=== PATIENT | female | born 1975 | race Caucasian/White ===

== ENCOUNTER 2022-04-25 17:49 | Emergency (ER) | payer OTHER ==
[~2022-04-25] VITALS: Ht 157.5 cm; Wt 68.7 kg
[~2022-04-25 17:49] MED LIST: FERR-252 PO
[2022-04-25 17:55] VITALS: BP 158/93
[2022-04-25] MEDS ORDERED: KETOROLAC 30 MG/ML VIAL IM ONE (18:25)
[2022-04-25] MEDS ORDERED: CYCLOBENZAPRINE 10 MG TAB PO ONE (18:25)
--- NOTE | 2022-04-25 20:00 | NUR ---
ER physician with patient.
[2022-04-25] MEDS ORDERED: CYCL-711 PO (20:17)
[2022-04-25] MEDS ORDERED: LIDO1ADH38 TP (20:17)
[2022-04-25] MEDS ORDERED: IBUP-2213 PO (20:17)
[2022-04-25] MEDS ORDERED: KETOROLAC 30 MG/ML VIAL ONE (20:30)
[2022-04-25] MEDS ORDERED: CYCLOBENZAPRINE 10 MG TAB ONE (20:30)
[2022-04-25 20:40] VITALS: BP 122/84
== END 2022-04-25 20:40 | disposition home or self-care (01) ==
LOC: MED 17:49
DX: S16.1XXA Strain of muscle, fascia and tendon at neck level, initial encounter (principal); S39.012A Strain of muscle, fascia and tendon of lower back, initial encounter; S60.212A Contusion of left wrist, initial encounter; Z79.899 Other long term (current) drug therapy; V89.2XXA Person injured in unspecified motor-vehicle accident, traffic, initial encounter; Y93.89 Activity, other specified; Y92.89 Other specified places as the place of occurrence of the external cause; Y99.8 Other external cause status
CPT/HCPCS: 72100; 73110; 96372; 99284; J1885

== ENCOUNTER 2022-05-01 10:45 | Emergency (ER) | payer OTHER ==
[~2022-05-01 10:45] MED LIST changes: +CYCL-711 PO; +IBUP-2213 PO; +LIDO1ADH38 TP
--- NOTE | 2022-05-01 10:58 | NUR ---
pt left before triage
== END 2022-05-01 10:59 | disposition left against medical advice (07) ==
LOC: MED 10:45
DX: Z53.21 Procedure and treatment not carried out due to patient leaving prior to being seen by health care provider (principal)